=== PATIENT | female | born 1980 | race Two or more races ===

== ENCOUNTER 2023-10-30 15:19 | Emergency (ER) | payer OTHER ==
[~2023-10-30] VITALS: Ht 175.3 cm; Wt 95.4 kg
[2023-10-30] MEDS: KETOROLAC TROMETH 30 MG/ML 1ML VIAL IM ONE (20:40)
[2023-10-30 20:41] VITALS: BP 121/82; PULSE 72; RESP 17; TEMP 98.1; O2SAT 98
[2023-10-30] MEDS ORDERED: CLIN300C70 PO (20:44)
== END 2023-10-30 21:15 | disposition home or self-care (01) ==
LOC: ER 15:19 → EEVIPCON 15:19 → ER 21:15
DX: K04.7 Periapical abscess without sinus (principal); Z88.8 Allergy status to other drugs, medicaments and biological substances
CPT/HCPCS: 96372; 99283; J1885